=== PATIENT | male | born 1970 | race Caucasian/White ===

== ENCOUNTER 2018-04-28 11:21 | Inpatient (IN) | payer SELFPAY ==
[~2018-04-28] VITALS: Ht 175.3 cm; Wt 81.9 kg
[2018-04-28] MEDS ORDERED: ACETAMINOPHEN 325MG TABLET PO STA (15:38)
[2018-04-28] MEDS ORDERED: MORPHINE SULFATE 4 MG/ML CPJ (NOT FOR IM USE) IV STA (15:38)
[2018-04-28] MEDS ORDERED: ONDANSETRON HCL 4MG/2ML INJ IV STA (15:38)
[2018-04-28] MEDS ORDERED: SODIUM CHLORIDE 0.9% 1,000 ML IV ONE (15:38)
[2018-04-28] MEDS ORDERED: KETOROLAC 30MG/ML VIAL IV STA (15:38)
[2018-04-28] MEDS ORDERED: PIPERACILLIN/TAZ 3.375G PREMIX 50 ML IV ONE (15:45)
[2018-04-28] MEDS ORDERED: VANCOMYCIN 1 G PREMIX 200 ML IV ONE (15:45)
[2018-04-28] MEDS ORDERED: SODIUM CHLORIDE 0.9% 1000ML BAG (SEPSIS BOLUS) IV ONE (15:45)
[2018-04-28 16:55] LABS: PROTHROMBIN TIME 10.4 sec (9.1-11.1)
[2018-04-28 16:58] LABS: CHLORIDE 100 mEq/L (98-107)
[2018-04-28 17:00] LABS: HEMATOCRIT. 36.3 % (42.0-52.0); HEMOGLOBIN. 12.7 g/dL (14.0-18.0); MEAN CORPUSCULAR HEMOGLOBIN 32.3 pg (28.0-32.0); MEAN CORPUSCULAR VOLUME 92.1 fL (80.0-94.0); MEAN PLATELET VOLUME 7.8 fl (7.4-10.4); PLATELET 266 x1000/uL (130-400); RED BLOOD CELL COUNT 3.94 mill/uL (4.7-6.1)
[2018-04-28 17:42] LABS: CLARITY URINE CLEAR (CLEAR); COLOR URINE AMBER (YELLOW); KETONES URINE NEGATIVE (NEGATIVE); LEUKOCYTE ESTERASE URINE NEGATIVE (NEGATIVE); NITRITE URINE NEGATIVE (NEGATIVE); OCCULT BLOOD URINE NEGATIVE (NEGATIVE); PH URINE 5.5 (4.5-8.0); PROTEIN URINE 1+ (NEGATIVE); SPECIFIC GRAVITY URINE 1.042 (1.005-1.030)
[2018-04-28 18:10] LABS: PLATELET ESTIMATE NORMAL
[2018-04-28] MEDS: INSULIN REGULAR (HUMULIN R) 300UNITS/3ML SUBCUT ONE ×2 (19:07→19:09)
[2018-04-28 20:35] VITALS: BP 115/68
[2018-04-28 22:00] VITALS: BP 115/68
[2018-04-28] MEDS ORDERED: DEXTROSE 50% WATER 50ML SYRINGE IV PRN (23:15)
[2018-04-28] MEDS ORDERED: PIPERACILLIN/TAZ 3.375G PREMIX 50 ML IV SCH (23:15)
[2018-04-29] VITALS: BP 132/63
[2018-04-29] MEDS: PIPERACILLIN/TAZ 3.375G PREMIX 50 ML IV SCH ×4 (01:09→18:42)
[2018-04-29] MEDS: MORPHINE SULFATE 4 MG/ML CPJ (NOT FOR IM USE) IV PRN ×3 (01:10→21:32)
[2018-04-29] MEDS: VANCOMYCIN 1 G PREMIX 200 ML IV SCH ×3 (02:30→18:42)
[2018-04-29 04:00] VITALS: BP 118/74
[2018-04-29] MEDS: BLOOD SUGAR DIAGNOSTIC STRIP TEST SCH ×4 (06:16→21:37)
[2018-04-29] MEDS: INSULIN LISPRO 100 UNITS/ML SUBCUT SCH ×4 (07:16→21:53)
[2018-04-29 07:25] LABS: BASOPHILS % 0.2 % (0.0-2.0); HEMATOCRIT. 32.7 % (42.0-52.0); HEMOGLOBIN. 11.2 g/dL (14.0-18.0); MEAN CORPUSCULAR HEMOGLOBIN 31.5 pg (28.0-32.0); MEAN CORPUSCULAR VOLUME 91.7 fL (80.0-94.0); MEAN PLATELET VOLUME 7.8 fl (7.4-10.4); MONOCYTES % 11.6 % (2.0-8.0); NEUTROPHILS % 77.2 % (40.0-76.0); PLATELET 239 x1000/uL (130-400); RED BLOOD CELL COUNT 3.57 mill/uL (4.7-6.1); RED CELL DISTRIBUTION WIDTH 11.7 % (11.6-14.6)
[2018-04-29 07:46] LABS: CHLORIDE 105 mEq/L (98-107)
[2018-04-29 07:50] LABS: HDL CHOLESTEROL 38 mg/dL (40-59)
[2018-04-29 07:51] LABS: LDL CHOLESTEROL 67 mg/dL (5-100)
[2018-04-29 08:00] VITALS: BP 118/76
[2018-04-29] MEDS: METFORMIN HCL 500MG TABLET PO SCH ×2 (08:44→18:42)
[2018-04-29 12:00] VITALS: BP 131/78
[2018-04-29] MEDS ORDERED: LIDOCAINE HCL 1% 20ML VIAL (Pyxis) INJ INJ SCH (13:00)
[2018-04-29 16:00] VITALS: BP 125/69
[2018-04-29] MEDS: NICOTINE 14MG PATCH TD SCH (17:00)
[2018-04-29] MEDS: ACETAMINOPHEN 325MG TABLET PO PRN (19:03)
[2018-04-29 20:00] VITALS: BP 138/76
[2018-04-30] VITALS: BP 115/62
[2018-04-30 04:00] VITALS: BP 124/70
[2018-04-30] MEDS: PIPERACILLIN/TAZ 3.375G PREMIX 50 ML IV SCH ×3 (06:00→18:01)
[2018-04-30] MEDS ORDERED: VANCOMYCIN 1 G PREMIX 200 ML IV SCH (07:00)
[2018-04-30 07:04] LABS: HEMATOCRIT. 32.2 % (42.0-52.0); HEMOGLOBIN. 11.2 g/dL (14.0-18.0); MEAN CORPUSCULAR HEMOGLOBIN 31.6 pg (28.0-32.0); MEAN CORPUSCULAR VOLUME 91.3 fL (80.0-94.0); MEAN PLATELET VOLUME 7.5 fl (7.4-10.4); PLATELET 257 x1000/uL (130-400); RED BLOOD CELL COUNT 3.53 mill/uL (4.7-6.1); RED CELL DISTRIBUTION WIDTH 11.7 % (11.6-14.6)
[2018-04-30] MEDS: BLOOD SUGAR DIAGNOSTIC STRIP TEST SCH ×3 (07:09→17:20)
[2018-04-30 08:00] VITALS: BP 129/73
[2018-04-30 08:09] LABS: CHLORIDE 99 mEq/L (98-107)
[2018-04-30] MEDS: NICOTINE 14MG PATCH TD SCH (09:00)
[2018-04-30] MEDS: METFORMIN HCL 500MG TABLET PO SCH ×2 (09:42→18:01)
[2018-04-30] MEDS: INSULIN LISPRO 100 UNITS/ML SUBCUT SCH ×3 (09:56→17:50)
[2018-04-30 12:00] VITALS: BP 109/64
[2018-04-30] MEDS ORDERED: INSULIN GLARGINE UD 100 UNITS/ML SYR SUBCUT SCH (12:30)
[2018-04-30] MEDS: ACETAMINOPHEN 325MG TABLET PO PRN ×2 (13:38→18:02)
[2018-04-30] MEDS ORDERED: VANCOMYCIN 1,500 MG in DEXT 5% WATER 250 ML IV SCH (14:00)
[2018-04-30 14:50] LABS: PLATELET ESTIMATE NORMAL
[2018-04-30 16:00] VITALS: BP 108/64
[2018-04-30 17:27] VITALS: BP 108/64
== END 2018-04-30 20:00 | disposition home or self-care (01) | DRG 710 ==
LOC: ER 14:02 → 6EST 15:41 → EDBEDREQ 17:38 → ENRESERV 19:24
PROVIDERS: ADMIT Internal Medicine; ATTEND Internal Medicine
PROC: 0QBP0ZZ Excision of Left Metatarsal, Open Approach (ICD-10-PCS; principal; 2018-04-29)
PROC: 0JBQ0ZZ Excision of Right Foot Subcutaneous Tissue and Fascia, Open Approach (ICD-10-PCS; 2018-04-29)
PROC: 0JDQ0ZZ Extraction of Right Foot Subcutaneous Tissue and Fascia, Open Approach (ICD-10-PCS; 2018-04-29)
DX: A41.9 Sepsis, unspecified organism (principal); E11.621 Type 2 diabetes mellitus with foot ulcer; E11.42 Type 2 diabetes mellitus with diabetic polyneuropathy; E44.0 Moderate protein-calorie malnutrition; T87.89 Other complications of amputation stump; L97.529 Non-pressure chronic ulcer of other part of left foot with unspecified severity; E87.1 Hypo-osmolality and hyponatremia; D64.9 Anemia, unspecified; F17.210 Nicotine dependence, cigarettes, uncomplicated; Z91.14 Patient's other noncompliance with medication regimen; F19.10 Other psychoactive substance abuse, uncomplicated; L03.032 Cellulitis of left toe; L02.612 Cutaneous abscess of left foot; L57.0 Actinic keratosis; Y83.5 Amputation of limb(s) as the cause of abnormal reaction of the patient, or of later complication, without mention of misadventure at the time of the procedure; Y92.89 Other specified places as the place of occurrence of the external cause; Z71.6 Tobacco abuse counseling; Z89.411 Acquired absence of right great toe
CPT/HCPCS: 36415; 73630; 73721; 80048; 80061; 80202; 82962; 83036; 83605; 84145; 84484; 85651; 86140; 87070; 87075; 87077; 87186; 96365; 96366; 96375; 99285; C1893; J1815; J1885; J2270; J2405; J2543; J3370; J3490; J7030; J7050; J7060

== ENCOUNTER 2018-06-13 15:08 | Emergency (ER) | payer SELFPAY | END 2018-06-13 23:46 | disposition left against medical advice (07) | LOC: ER 15:08 | DX: Z53.21 Procedure and treatment not carried out due to patient leaving prior to being seen by health care provider (principal) ==

== ENCOUNTER 2018-08-27 08:55 | Inpatient (IN) | payer MEDICAID, OTHER ==
[~2018-08-27] VITALS: Ht 175.3 cm; Wt 83.9 kg
[2018-08-27] MEDS ORDERED: AMPICILLIN SOD/SULBACTAM NA 3 G in SODIUM CHLORIDE 0.9% 100 ML IV STA (10:32)
[2018-08-27] MEDS ORDERED: SODIUM CHLORIDE 0.9% 1,000 ML IV ONE (10:32)
[2018-08-27 11:29] LABS: BASOPHILS % 0.4 % (0.0-2.0); EOSINOPHILS % 0.4 % (0.0-5.0); HEMATOCRIT. 36.2 % (42.0-52.0); HEMOGLOBIN. 12.1 g/dL (14.0-18.0); LYMPHOCYTES % 12.6 % (20.0-50.0); MEAN CORPUSCULAR HEMOGLOBIN 28.5 pg (28.0-32.0); MEAN CORPUSCULAR VOLUME 85.2 fL (80.0-94.0); MEAN PLATELET VOLUME 7.3 fl (7.4-10.4); MONOCYTES % 7.4 % (2.0-8.0); NEUTROPHILS % 79.2 % (40.0-76.0); PLATELET 327 x1000/uL (130-400); RED BLOOD CELL COUNT 4.25 mill/uL (4.7-6.1); RED CELL DISTRIBUTION WIDTH 12.4 % (11.6-14.6)
[2018-08-27 11:37] LABS: CHLORIDE 102 mEq/L (98-107)
[2018-08-27 11:39] LABS: PROTHROMBIN TIME 9.9 sec (9.1-11.1)
[2018-08-27 11:44] LABS: CLARITY URINE CLEAR (CLEAR); COLOR URINE YELLOW (YELLOW); KETONES URINE NEGATIVE (NEGATIVE); LEUKOCYTE ESTERASE URINE NEGATIVE (NEGATIVE); NITRITE URINE NEGATIVE (NEGATIVE); OCCULT BLOOD URINE TRACE (NEGATIVE); PROTEIN URINE 1+ (NEGATIVE); SPECIFIC GRAVITY URINE 1.043 (1.005-1.030); UROBILINOGEN URINE 0.2 E.U./dL (0.2-1.0)
[2018-08-27] MEDS ORDERED: MORPHINE SULFATE 4 MG/ML CPJ (NOT FOR IM USE) IV ONE (12:15)
[2018-08-27] MEDS ORDERED: INSULIN REGULAR (HUMULIN R) 300UNITS/3ML SUBCUT ONE (12:30)
[2018-08-27] MEDS ORDERED: DIPHENHYDRAMINE 50MG/ML VIAL IV PRN (12:45)
[2018-08-27] MEDS ORDERED: IPRATROPIUM/ALBUTEROL 0.5-3(2.5)MG/3ML NEB INH PRN (12:45)
[2018-08-27] MEDS ORDERED: CLONIDINE 0.1MG TABLET PO PRN (12:45)
[2018-08-27] MEDS ORDERED: MAGNESIUM/ALUMINUM HYDROXIDE/SIMETHICONE 30ML UDC PO PRN (12:45)
[2018-08-27 14:55] LABS: PHOSPHORUS 2.9 mg/dL (2.5-4.9)
[2018-08-27 15:45] VITALS: BP 144/71
[2018-08-27] MEDS ORDERED: DEXTROSE 50% WATER 50ML SYRINGE IV PRN (15:45)
[2018-08-27 15:49] LABS: HEPATITIS A AB IGM NEGATIVE (NEGATIVE)
[2018-08-27] MEDS: INSULIN LISPRO 100 UNITS/ML SUBCUT SCH ×2 (17:15→23:02)
[2018-08-27] MEDS: MORPHINE SULFATE 4 MG/ML CPJ (NOT FOR IM USE) IV PRN (17:17)
[2018-08-27] MEDS: BLOOD SUGAR DIAGNOSTIC STRIP TEST SCH ×2 (17:27→20:29)
[2018-08-27] MEDS: ENOXAPARIN 40MG/0.4ML SYR SUBCUT SCH (17:36)
[2018-08-27 20:00] VITALS: BP 146/77
[2018-08-28] VITALS: BP 115/66
[2018-08-28 00:12] LABS: CREATINE KINASE 75 IU/L (39-308)
[2018-08-28 04:00] VITALS: BP 118/78
[2018-08-28 06:36] LABS: BASOPHILS % 0.4 % (0.0-2.0); EOSINOPHILS % 1.8 % (0.0-5.0); HEMATOCRIT. 35.7 % (42.0-52.0); HEMOGLOBIN. 12.2 g/dL (14.0-18.0); LYMPHOCYTES % 20.6 % (20.0-50.0); MEAN CORPUSCULAR HEMOGLOBIN 29.2 pg (28.0-32.0); MEAN CORPUSCULAR VOLUME 85.4 fL (80.0-94.0); MEAN PLATELET VOLUME 7.1 fl (7.4-10.4); MONOCYTES % 9.5 % (2.0-8.0); NEUTROPHILS % 67.7 % (40.0-76.0); PLATELET 289 x1000/uL (130-400); RED BLOOD CELL COUNT 4.18 mill/uL (4.7-6.1); RED CELL DISTRIBUTION WIDTH 12.5 % (11.6-14.6)
[2018-08-28 07:00] LABS: CHLORIDE 107 mEq/L (98-107)
[2018-08-28] MEDS: BLOOD SUGAR DIAGNOSTIC STRIP TEST SCH ×4 (07:12→21:42)
[2018-08-28] MEDS: INSULIN LISPRO 100 UNITS/ML SUBCUT SCH ×4 (07:12→21:42)
[2018-08-28 07:13] LABS: LDL CHOLESTEROL 78 mg/dL (5-100)
[2018-08-28 07:15] LABS: HDL CHOLESTEROL 46 mg/dL (40-59)
[2018-08-28 08:00] VITALS: BP 133/81
[2018-08-28 12:00] VITALS: BP 135/78
[2018-08-28] MEDS ORDERED: VANCOMYCIN 2,000 MG in DEXT 5% WATER 500 ML IV SCH (14:00)
[2018-08-28] MEDS ORDERED: PIPERACILLIN/TAZ 3.375G PREMIX 50 ML IV SCH (14:00)
[2018-08-28] MEDS: MORPHINE SULFATE 4 MG/ML CPJ (NOT FOR IM USE) IV PRN (15:52)
[2018-08-28 16:00] VITALS: BP_SYST 111; BP_SYST 124; BP_DIAS 61; BP_DIAS 64
[2018-08-28] MEDS: ENOXAPARIN 40MG/0.4ML SYR SUBCUT SCH (17:00)
[2018-08-28 18:05] LABS: HEPATITIS B SURFACE ANTIGEN NEGATIVE
[2018-08-28] MEDS: PIPERACILLIN/TAZ 3.375G PREMIX 50 ML IV SCH (18:14)
[2018-08-28 20:00] VITALS: BP 122/67
[2018-08-28] MEDS: VANCOMYCIN 1,750 MG in DEXT 5% WATER 500 ML IV SCH (22:29)
[2018-08-29] VITALS: BP 119/68
[2018-08-29] MEDS: PIPERACILLIN/TAZ 3.375G PREMIX 50 ML IV SCH ×3 (02:48→11:37)
[2018-08-29 04:00] VITALS: BP 115/75
[2018-08-29] MEDS: INSULIN LISPRO 100 UNITS/ML SUBCUT SCH ×2 (06:30→11:38)
[2018-08-29] MEDS: BLOOD SUGAR DIAGNOSTIC STRIP TEST SCH ×2 (07:36→11:36)
[2018-08-29] MEDS: VANCOMYCIN 1,750 MG in DEXT 5% WATER 500 ML IV SCH (07:36)
[2018-08-29 10:13] LABS: HIV SCREEN 4G Non Reactive (Non Reactive)
[2018-08-29] MEDS: MORPHINE SULFATE 4 MG/ML CPJ (NOT FOR IM USE) IV PRN (10:36)
[2018-08-29 12:16] VITALS: BP 137/80
[2018-08-29 12:56] LABS: CHLORIDE 103 mEq/L (98-107)
[2018-08-29 13:04] LABS: VANCOMYCIN TROUGH 26.8 ug/mL (5.0-10.0)
[2018-08-29 16:00] VITALS: BP 133/76
[2018-08-29] MEDS ORDERED: VANCOMYCIN 1500MG in DEXTROSE 5% WATER 250ML IV SCH (16:00)
[2018-08-29 16:45] VITALS: BP 133/76
== END 2018-08-29 17:30 | disposition home or self-care (01) | DRG 314 ==
LOC: ER 09:21 → 5WST 12:14 → EDBEDREQ 12:16 → EDBEDREQTM 12:16 → EDBEDREQSVC 12:16 → ENRESERV 12:32 → 5WST 20:51
PROVIDERS: ADMIT Internal Medicine; ATTEND Internal Medicine
PROC: 0QBN0ZZ Excision of Right Metatarsal, Open Approach (ICD-10-PCS; principal; 2018-08-27)
DX: E11.69 Type 2 diabetes mellitus with other specified complication (principal); M86.8X7 Other osteomyelitis, ankle and foot; E11.42 Type 2 diabetes mellitus with diabetic polyneuropathy; E11.621 Type 2 diabetes mellitus with foot ulcer; E11.65 Type 2 diabetes mellitus with hyperglycemia; D50.9 Iron deficiency anemia, unspecified; F17.210 Nicotine dependence, cigarettes, uncomplicated; E44.1 Mild protein-calorie malnutrition; L97.519 Non-pressure chronic ulcer of other part of right foot with unspecified severity; E83.42 Hypomagnesemia; L57.0 Actinic keratosis; F19.10 Other psychoactive substance abuse, uncomplicated; I10 Essential (primary) hypertension; E11.628 Type 2 diabetes mellitus with other skin complications; Z89.411 Acquired absence of right great toe; Z91.14 Patient's other noncompliance with medication regimen; Z68.27 Body mass index [BMI] 27.0-27.9, adult; Z71.6 Tobacco abuse counseling; Z79.4 Long term (current) use of insulin
CPT/HCPCS: 36415; 71045; 73630; 73721; 80048; 80061; 80202; 82550; 82962; 83036; 83605; 83735; 84100; 84443; 85651; 86140; 86705; 86709; 86803; 87070; 87075; 87077; 87186; 87340; 87389; 93005; 93970; 96365; 96375; 97162; 97165; 97535; 99285; J0295; J1650; J1815; J2270; J2543; J3370; J7030; J7050; J7060

== ENCOUNTER 2018-10-07 09:25 | Inpatient (IN) | payer SELFPAY ==
[~2018-10-07] VITALS: Ht 175.3 cm; Wt 81.6 kg
[2018-10-07 10:37] LABS: BASOPHILS % 0.6 % (0.0-2.0); EOSINOPHILS % 2.3 % (0.0-5.0); HEMATOCRIT. 37.7 % (42.0-52.0); HEMOGLOBIN. 12.6 g/dL (14.0-18.0); LYMPHOCYTES % 27.5 % (20.0-50.0); MEAN CORPUSCULAR HEMOGLOBIN 28.1 pg (28.0-32.0); MEAN CORPUSCULAR VOLUME 84.5 fL (80.0-94.0); MONOCYTES % 9.8 % (2.0-8.0); NEUTROPHILS % 59.8 % (40.0-76.0); PLATELET 312 x1000/uL (130-400); RED BLOOD CELL COUNT 4.46 mill/uL (4.7-6.1); RED CELL DISTRIBUTION WIDTH 13.8 % (11.6-14.6)
[2018-10-07 10:43] LABS: CHLORIDE 101 mEq/L (98-107)
[2018-10-07 10:45] LABS: INR 1.1; PROTHROMBIN TIME 10.9 sec (9.1-11.1)
[2018-10-07] MEDS ORDERED: VANCOMYCIN 1 G PREMIX 200 ML IV SCH ×2 (11:30→12:00)
[2018-10-07] MEDS ORDERED: HYDROCODONE/ACETAMINOPHEN 10/325MG TABLET PO ONE (11:45)
[2018-10-07] MEDS ORDERED: DOCUSATE SODIUM 100MG CAPSULE PO PRN (12:00)
[2018-10-07] MEDS ORDERED: CLONIDINE 0.1MG TABLET PO PRN (12:00)
[2018-10-07] MEDS ORDERED: NA PHOS,M-B/NA PHOS,DI-BA ENEMA 118ML PR PRN (12:00)
[2018-10-07] MEDS ORDERED: ACETAMINOPHEN 325MG TABLET PO PRN (12:00)
[2018-10-07] MEDS ORDERED: IPRATROPIUM/ALBUTEROL 0.5-3(2.5)MG/3ML NEB INH PRN (12:00)
[2018-10-07] MEDS ORDERED: MAGNESIUM/ALUMINUM HYDROXIDE/SIMETHICONE 30ML UDC PO PRN (12:00)
[2018-10-07] MEDS ORDERED: GUAIFENESIN 200MG/10ML SUGAR FREE UDC PO PRN (12:00)
[2018-10-07] MEDS ORDERED: LORAZEPAM 2MG/ML CPJ IV PRN (12:00)
[2018-10-07] MEDS ORDERED: DIPHENHYDRAMINE 50MG/ML VIAL IV PRN (12:00)
[2018-10-07] MEDS ORDERED: ONDANSETRON HCL 4MG/2ML INJ IV PRN (12:00)
[2018-10-07 12:02] LABS: CLARITY URINE CLEAR (CLEAR); COLOR URINE YELLOW (YELLOW); KETONES URINE NEGATIVE (NEGATIVE); LEUKOCYTE ESTERASE URINE NEGATIVE (NEGATIVE); NITRITE URINE NEGATIVE (NEGATIVE); OCCULT BLOOD URINE NEGATIVE (NEGATIVE); PROTEIN URINE 1+ (NEGATIVE); SPECIFIC GRAVITY URINE 1.018 (1.005-1.030)
[2018-10-07] MEDS: AMPICILLIN SOD/SULBACTAM NA 3 G in SODIUM CHLORIDE 0.9% 100 ML IV SCH ×2 (12:08→20:20)
[2018-10-07] MEDS ORDERED: ASPIRIN 81MG EC TABLET PO SCH (12:45)
[2018-10-07] MEDS ORDERED: PIPERACILLIN/TAZ 3.375G PREMIX 50 ML IV NR (14:21)
[2018-10-07 14:38] LABS: CHLORIDE 102 mEq/L (98-107)
[2018-10-07] MEDS: MORPHINE SULFATE 4 MG/ML CPJ (NOT FOR IM USE) IV PRN ×2 (16:11→20:55)
[2018-10-07 23:45] VITALS: BP 138/77
[2018-10-08 00:42] VITALS: BP 144/93
[2018-10-08] MEDS: MORPHINE SULFATE 4 MG/ML CPJ (NOT FOR IM USE) IV PRN ×2 (02:22→08:57)
[2018-10-08] MEDS: PIPERACILLIN/TAZ 3.375G PREMIX 50 ML IV SCH ×3 (03:09→21:31)
[2018-10-08 04:00] VITALS: BP 114/76
[2018-10-08] MEDS: VANCOMYCIN 1 G PREMIX 200 ML IV SCH ×3 (04:02→20:38)
[2018-10-08 07:16] LABS: CHLORIDE 104 mEq/L (98-107)
[2018-10-08 07:27] LABS: BASOPHILS % 0.5 % (0.0-2.0); EOSINOPHILS % 3.4 % (0.0-5.0); HEMATOCRIT. 35.2 % (42.0-52.0); LYMPHOCYTES % 27.4 % (20.0-50.0); MEAN CORPUSCULAR HEMOGLOBIN 28.6 pg (28.0-32.0); MEAN PLATELET VOLUME 7.3 fl (7.4-10.4); MONOCYTES % 12.8 % (2.0-8.0); NEUTROPHILS % 55.9 % (40.0-76.0); PLATELET 303 x1000/uL (130-400); RED BLOOD CELL COUNT 4.19 mill/uL (4.7-6.1); RED CELL DISTRIBUTION WIDTH 13.5 % (11.6-14.6)
[2018-10-08 07:44] LABS: LDL CHOLESTEROL 69 mg/dL (5-100)
[2018-10-08 07:46] LABS: HDL CHOLESTEROL 40 mg/dL (40-59)
[2018-10-08] MEDS: ENOXAPARIN 40MG/0.4ML SYR SUBCUT SCH (08:56)
[2018-10-08] MEDS: ASPIRIN 81MG EC TABLET PO SCH (08:56)
[2018-10-08 12:00] VITALS: BP 119/75
[2018-10-08] MEDS ORDERED: DEXTROSE 50% WATER 50ML SYRINGE IV PRN (12:15)
[2018-10-08] MEDS: BLOOD SUGAR DIAGNOSTIC STRIP TEST SCH ×3 (12:36→21:03)
[2018-10-08] MEDS: INSULIN LISPRO 100 UNITS/ML SUBCUT SCH ×3 (13:38→21:02)
[2018-10-08] MEDS: HYDROCODONE/ACETAMINOPHEN 5/325MG TABLET PO PRN (14:55)
[2018-10-08 20:00] VITALS: BP 110/62
[2018-10-08] MEDS ORDERED: PIPERACILLIN/TAZ 2.25G PREMIX 50 ML IV SCH (20:00)
[2018-10-09] VITALS: BP 122/79
[2018-10-09] MEDS: VANCOMYCIN 1 G PREMIX 200 ML IV SCH (03:18)
[2018-10-09 04:00] VITALS: BP 120/65
[2018-10-09] MEDS: PIPERACILLIN/TAZ 3.375G PREMIX 50 ML IV SCH ×2 (04:09→12:47)
[2018-10-09] MEDS: BLOOD SUGAR DIAGNOSTIC STRIP TEST SCH ×2 (07:20→12:46)
[2018-10-09 08:00] VITALS: BP 126/72
[2018-10-09] MEDS: ASPIRIN 81MG EC TABLET PO SCH (08:13)
[2018-10-09] MEDS: ENOXAPARIN 40MG/0.4ML SYR SUBCUT SCH (08:14)
[2018-10-09] MEDS: INSULIN LISPRO 100 UNITS/ML SUBCUT SCH ×2 (08:35→12:50)
[2018-10-09 11:53] VITALS: BP 134/77
[2018-10-09] MEDS: HYDROCODONE/ACETAMINOPHEN 5/325MG TABLET PO PRN (12:47)
[2018-10-09] MEDS ORDERED: VANCOMYCIN 1250MG in DEXTROSE 5% WATER 250ML IV SCH (14:00)
[2018-10-09 16:00] VITALS: BP 133/74
[2018-10-09 16:13] VITALS: BP 133/74
== END 2018-10-09 17:10 | disposition home or self-care (01) | DRG 317 ==
LOC: ER 09:25 → 6EST 11:43 → EDBEDREQTM 11:44 → EDBEDREQ 11:44 → ENRESERV 20:52
PROVIDERS: ADMIT Internal Medicine; ATTEND Internal Medicine
PROC: 0KBV0ZZ Excision of Right Foot Muscle, Open Approach (ICD-10-PCS; principal; 2018-10-08)
DX: E11.621 Type 2 diabetes mellitus with foot ulcer (principal); M86.671 Other chronic osteomyelitis, right ankle and foot; E11.42 Type 2 diabetes mellitus with diabetic polyneuropathy; E11.51 Type 2 diabetes mellitus with diabetic peripheral angiopathy without gangrene; E11.69 Type 2 diabetes mellitus with other specified complication; F19.10 Other psychoactive substance abuse, uncomplicated; I10 Essential (primary) hypertension; L97.519 Non-pressure chronic ulcer of other part of right foot with unspecified severity; R65.10 Systemic inflammatory response syndrome (SIRS) of non-infectious origin without acute organ dysfunction; F17.200 Nicotine dependence, unspecified, uncomplicated; Z89.411 Acquired absence of right great toe; Z91.19 Patient's noncompliance with other medical treatment and regimen
CPT/HCPCS: 36415; 73630; 80048; 80061; 80202; 82962; 85651; 86140; 96374; 96375; 99285; J0295; J1650; J1815; J2270; J2543; J3370; J7040; J7050; J7060